=== PATIENT | female | born 1955 | race Caucasian/White ===

== ENCOUNTER 2019-01-22 10:58 | Emergency (ER) | payer OTHER ==
[~2019-01-22] VITALS: Ht 162.6 cm; Wt 49.9 kg
[2019-01-22] MEDS ORDERED: FOSAMAX 70 MG T70 MG PO (11:11)
[2019-01-22] MEDS ORDERED: POTASSIUM99 M1 PO (11:11)
[2019-01-22] MEDS ORDERED: ZANTAC 150MG T150 MG PO (11:12)
[2019-01-22] MEDS ORDERED: VERAPAMIL E.R240 M1 PO (11:12)
[2019-01-22] MEDS ORDERED: ZOLOFT25 MG PO (11:12)
[2019-01-22] MEDS ORDERED: NORCO 5-325 TA1 EAC1 PO (13:13)
[2019-01-22 14:08] VITALS: BP 148/82
== END 2019-01-22 14:09 | disposition home or self-care (01) ==
LOC: M.ERS 10:58
DX: S82.141A Displaced bicondylar fracture of right tibia, initial encounter for closed fracture (principal); I10 Essential (primary) hypertension; M81.0 Age-related osteoporosis without current pathological fracture; M19.90 Unspecified osteoarthritis, unspecified site; F32.9 Major depressive disorder, single episode, unspecified; Z90.710 Acquired absence of both cervix and uterus; Z90.49 Acquired absence of other specified parts of digestive tract; Z90.89 Acquired absence of other organs; W20.8XXA Other cause of strike by thrown, projected or falling object, initial encounter; Y92.89 Other specified places as the place of occurrence of the external cause; Y99.0 Civilian activity done for income or pay; Y99.8 Other external cause status